=== PATIENT | female | born 1985 | race Caucasian/White ===

== ENCOUNTER → 2019-06-12 15:26 | Outpatient (CLI) | payer OTHER, SELFPAY ==
[2018-06-21 11:49] VITALS: BMI 28.9
--- NOTE | 2019-06-12 12:45 | COLBX_PTH ---
PATIENT: AMARI RUCKER LOC: [facility] U#:[id number] AGE/SX: 39/F ROOM: RE06/12/[address]: Dr. Ramirez Mcdonald MD : 1985 BED: DIS: SPEC #: [id number] RECD: 06/12/19 15:25 STATUS: URSULA VLAD #: [id number] EVELYN: 06/12/19 12:[address]: Ramirez Mcdonald DEPT: SURGICAL PATHOLOGY RECD BY: Jovanni Carrasquillo ENTERED: 06/13/19 10:49 SP TYPE: COLON BX OTHR DR: Dr. Megan Peña, [facility] Tissues: Rectum, NOS Procedures: Surgery Specimen Level IV HEADER OPERATION: Colonoscopy with biopsy PRE-OP DIAGNOSIS: Rectal bleeding TISSUE SUBMITTED: Rectal biopsy, rule out active proctitis MICROSCOPIC DIAGNOSIS Rectal biopsy: Consistent with chronic active proctitis and mild activity. See microscopic description and comment. SJ:emely 06/15/19 COMMENT Correlation with clinical, endoscopic findings and appropriate follow up are necessary. MICROSCOPIC DESCRIPTION Slides are reviewed. The specimen shows fragments of colonic mucosa with acute and chronic inflammatory cell infiltrate in the lamina propria, minimal glandular distortion, cryptitis, crypt abscess and lymphoid aggregates. No evidence of dysplasia. GROSS DESCRIPTION Received in fixative is one container labeled with the patient's name and designated rectal biopsy. The specimen consists of multiple irregular fragments of light longoria soft tissue that in aggregate measure 1 x 0.3 x 0.1 cm. The specimen is totally submitted in one cassette. / AM:emely 06/13/19 TC:2 CPT: 65320
== END ==
PROVIDERS: Referring Provider Internal Medicine Gastroenterology; Visit Provider Internal Medicine Gastroenterology
DX: K62.5 Hemorrhage of anus and rectum (principal)
CPT/HCPCS: 88305

== ENCOUNTER → 2024-02-04 | Outpatient (CLI) | payer OTHER, SELFPAY ==
--- NOTE | 2024-02-04 | US_ITS ---
STUDY: ULTRASOUND BREAST - LEFT REASON FOR EXAM: Female, 38 years old. Abnormal screening mammogram. TECHNIQUE: Axial and longitudinal images of the LEFT breast were performed with a high resolution ultrasound transducer. # OF IMAGES: 21 COMPARISON: Comparison is made with prior outside examination dated August 05, 2023. FINDINGS: LEFT Breast: The upper half of the left breast was examined with ultrasound. There is a 5 mm x 9 mm x 2 mm benign-appearing lymph node at the 12:00 position of the breast at 3 cm from the nipple. US/Breast Limited Unilateral IMPRESSION: Benign-appearing 5 mm x 9 mm x 2 mm lymph node at the 12:00 position of the breast at 3 cm from the nipple. ASSESSMENT CATEGORY: BIRADS Category 2: Benign. A letter regarding these results will be sent to the patient by the facility within 30 days. Electronically Signed: Brendon Mendoza MD at 10:55 EDT ,
== END | disposition home or self-care (01) ==
DX: R92.8 Other abnormal and inconclusive findings on diagnostic imaging of breast (principal)
CPT/HCPCS: 76642

== ENCOUNTER → 2024-03-13 | Outpatient (CLI) | payer OTHER, SELFPAY ==
[2024-03-13 15:10] LABS: Hematocrit 41.5 % (37-47); Hemoglobin 13.9 g/dL (12.0-15.0); Mean Corp Hgb Conc 33.5 g/dL (32-36); Mean Corpuscular Volume 89.6 fL (81-99); Mean Platelet Vol. 9.9 fl (6.2-12.0); Platelet Count 401 K/mm3 (150-450); RBC Distribution Width CV 12.6 % (11.6-14.6); RBC Distribution Width SD 41.4 fl (35.1-43.9); Red Blood Count 4.63 M/mm3 (4.2-5.4); White Blood Count 11.5 K/mm3 (4.4-11.0)
[2024-03-13 15:23] LABS: Erythrocyte Sedimentation Rate 5 mm/hr (0-30)
[2024-03-13 15:57] LABS: CRP 3.11 mg/L (0.0-3.0)
== END | disposition home or self-care (01) ==
LOC: LAB 14:13
PROVIDERS: PCP Nurse Practitioner Family; Referring Provider Internal Medicine Gastroenterology; Visit Provider Internal Medicine Gastroenterology
DX: K52.9 Noninfective gastroenteritis and colitis, unspecified (principal)
CPT/HCPCS: 36415; 85027; 85652; 86140

== ENCOUNTER → 2024-10-02 | Outpatient (CLI) | payer OTHER, SELFPAY ==
--- NOTE | 2024-10-02 12:59 | BI_ITS ---
EXAM: SCRN MAMM (CAD)W/VICKI BILAT DATE: 10/02/2024 CLINICAL HISTORY: F, Age 39 y/o , SCREENING BREAST CANCER RISK ASSESSMENT: Has not been calculated. TECHNIQUE: Bilateral screening digital breast tomosynthesis with 2D and 3D images. Computer aided detection. COMPARISON: Prior exam(s) dated 08/05/2023 and 07/07/2023. FINDINGS: TISSUE DENSITY: The breast tissue is composed of scattered area of fibroglandular density. Bilateral Breast Mammographic Findings: There are no suspicious masses, suspicious cluster of microcalcifications, architectural distortion or secondary signs of malignancy identified in either breast. BI/SCRN MAMM (CAD)W/VICKI BILAT IMPRESSION: OVERALL FINAL ASSESSMENT: BIRADS 1 NEGATIVE RECOMMENDATION: Routine annual follow-up in 1 Year A letter with findings and recommendations will be mailed to the patient. Reading Location: [id number]
== END | disposition home or self-care (01) ==
LOC: OPBI 12:57
PROVIDERS: PCP Nurse Practitioner Family; Referring Provider Obstetrics & Gynecology; Visit Provider Obstetrics & Gynecology
DX: Z12.31 Encounter for screening mammogram for malignant neoplasm of breast (principal)
CPT/HCPCS: 77063; 77067